=== PATIENT | male | born 1940 | race Caucasian/White ===

== ENCOUNTER → 2017-03-29 | Day surgery (SDC) | payer MEDICARE ==
[~2017-03-29] MED LIST: ATORVASTATIN CA20 M1 PO; CLONAZEPAM0.5 M2 PO; FLOMAX0.4 M1 PO; LEVEMIR100 UNIT/1 SC; LISINOPRIL10 M1 PO; METOPROLOL SUC100 M2 PO
--- NOTE | 2017-03-29 08:53 | Operative Report ---
Operative/Inv Procedure Report Surgery Date: 03/29/17 Name of Procedure: Pacemaker generator change Pre-Operative Diagnosis: end of battery life Post-Operative Diagnosis: s/p new generator implant Estimated Blood Loss: scant Surgeon/Sales Outfitter: ORI BENAVIDES MD Anesthesia: local monitored anesthesi Monitors: none IV Fluids: as per anesthesia Implants: [employer] generator Advisa serial #[id number] Urine Output: per anesthesia note Drains: none Specimens: old generator Microbiology: none Tourniquet: none Complications: none Condition: stable Operative Indication: End of battery life Operative/Procedure Note Note: Informed consent obtained. Patient was brought to OR in a fasting state. Time out performed. Moderate sedation provided by aneshesia. Skin was infiltrated with 1% lidocaine. Incision was made over the old generator. Using dull and sharp dissection pacer pocket was enter and old generator was removed. Pacer leads were tested. (V lead threshold was 1.0, Impedance 494, R wave 20, A lead threshold 1.0, impedance 589, p wave none). New generator was attached to the leads and screws were tightened. Pocket flushes with atb solution. Generator was introduced to the pocket and closed with 3 layers of Vicryl. Wound covered with steri strips and Tegaderm dressing. Patient was brought to same day surgery in stable condition. No complications. Findings: none Discharge Disposition: Same Day Admissions Additional Comments: none CC: MAYCO MARTINEZ,MARU Mcdermott
== END ==
LOC: STS 01:26
DX: Z45.010 Encounter for checking and testing of cardiac pacemaker pulse generator [battery] (principal); I25.10 Atherosclerotic heart disease of native coronary artery without angina pectoris; I10 Essential (primary) hypertension; E11.9 Type 2 diabetes mellitus without complications; Z79.84 Long term (current) use of oral hypoglycemic drugs
CPT/HCPCS: C1785; J2250; J3370; J7040